=== PATIENT | male | born 1970 | race Caucasian/White ===

== ENCOUNTER → 2019-08-17 | Outpatient (CLI) | payer BC ==
--- NOTE | 2019-08-17 12:54 | Diagnostic Imaging Report ---
Indication: Abnormal chest x-ray. Question of a nodule in the middle lobe Technique: Continuous helical transaxial imaging of the chest was obtained from the thoracic inlet to the upper abdomen after intravenous nonionic contrast administration. Coronal 2-D reformats were also obtained. Automatic Exposure Control was utilized. Total Dose length Product (DLP): 1692.[address] Dose Index Volume (CTDIvol): 203.3 mGy Comparison: Chest x-ray 07/10/2019 Findings: Scattered 1 to 2 mm nodular densities are noted within both lung [place]. These may be disregarded per Fleischner Society criteria. The lungs are clear otherwise. X-ray observation noted. No corresponding abnormality is demonstrated. There is no consolidation or interstitial opacities identified. No pleural effusion seen. No abnormal adenopathy identified. Aorta and pulmonary artery., Heart or unremarkable. The visualized part of the upper abdomen is unremarkable. IMPRESSION: Negative evaluation. No evidence of a lung nodule or other concerning pathology. The CT scanner at [facility] is accredited by the [employer] and the scans are performed using dose optimization techniques as appropriate to a performed exam including Automatic Exposure control.
== END | disposition home or self-care (01) ==
LOC: CAT 11:10
DX: R91.8 Other nonspecific abnormal finding of lung field (principal)
CPT/HCPCS: 71260; Q9967